=== PATIENT | male | born 1955 | race Caucasian/White ===

== ENCOUNTER 2021-09-26 00:31 | Day surgery (SDC) | payer MEDICARE, OTHER, SELFPAY ==
[2021-09-09 14:35] VITALS: BMI 28.3
[2021-09-26 06:40] VITALS: BP 164/92; PULSE 97; RESP 16; TEMP 36.4; O2SAT 99; BMI 29.0
--- NOTE | 2021-09-26 06:49 | PM.HPGS ---
History of Present Illness History of Present Illness Consent: Risks, benefits, and alternatives have been discussed and questions answered. Patient agrees to proceed with procedure. Chief complaint: neoplasm screening Narrative: Saul Humphries III is a 65 year old male Referred for colon cancer screening. His last colonoscopy was 10 years ago. Review of Systems Review of Systems: All systems reviewed & are unremarkable except as noted in HPI and below PMFSH Past Medical History Medical History Dyslipidemia GERD without esophagitis Low back pain at multiple sites Perianal fistula Unspecified osteoarthritis, unspecified site Vitamin D deficiency Surgical History Surgical History History of tonsillectomy 1958 Hx of cataract removal with insertion of prosthetic lens b/l 2015 Family History Family History Mother Family history of cardiovascular disease Family history of malignant neoplasm of breast in first degree relative Sibling Family history of malignant neoplasm Other Diabetes mellitus Hypertension Social History Social History Smoking status: Former smoker Tobacco type: cigarettes Second hand tobacco smoke exposure: No Smoking end date: 04/27/10 Alcohol intake: current Drinks per week: 1 Substance use: current Substance use type: marijuana Other substance usage details: MJ daily Living arrangements: with family Additional living arrangements comments: Gender identity (if verbalized by the patient): Male Sexual Orientation (if Verbalized by the Patient): Lesbian, Freitas, or Homosexual Spiritual care concerns: No Meds Home Medications and Allergies Home Medications Medication Instructions Recorded Confirmed Type pantoprazole 20 mg tablet,delayed 20 mg PO DAILY #90 tabs 08/07/21 09/09/21 Rx release simvastatin 40 mg tablet 40 mg PO QHS #90 tabs 09/02/21 09/09/21 Rx cholecalciferol (vitamin D3) 50 50 mcg PO DAILY #90 tabs 09/03/21 09/09/21 Rx mcg (2,000 unit) tablet mecobalamin (vitamin B12) 5,000 5,000 mcg PO DAILY 09/03/21 09/09/21 History mcg disintegrating tablet celecoxib 200 mg capsule 200 mg PO BID PRN pain #90 caps 09/11/21 Rx Allergies Allergy/AdvReac Type Severity Reaction Status Date / Time Cephalosporins Allergy Unknown Hives/Skin Verified 09/26/21 06:50 Rash Exam Resp: Auscultation: clear to auscultation bilaterally Cardio: Rate: regular rate Rhythm: regular rhythm GI: GI Palp: Yes Soft to palpation and No Tenderness to palpation present (GI) Assessment and Plan Assessment and plan (1) Colon cancer screening: Code(s): Z12.11 - Encounter for screening for malignant neoplasm of colon Status: Acute Assessment and Plan: Colonoscopy with possible biopsy or polypectomy or cautery or injection of substances.
[2021-09-26] MEDS: LACTATED RINGERS 1,000 ML 150 ML IV CONT (07:01)
--- NOTE | 2021-09-26 07:36 | WPDANESEPPF ---
Anes - Initial Pre Proc Eval Procedure: Operation Date: 09/26/21 08:00 Proposed Procedures p Screening Colonoscopy - Tim Soriano MD Date/Time: 09/26/21 07:36 Surgeon: Tim Soriano MD Pre Op Diagnosis: neoplasm screening Patient Data Age: 65 Gender: M Height: 1.91 m Weight: 105.3 kg Last Vital Signs Temp 97.6 F 09/26/21 06:40 Pulse 97 09/26/21 06:40 Resp 16 09/26/21 06:40 BP 164/92 H 09/26/21 06:40 Pulse Ox 99 09/26/21 06:40 O2 Del Method Room Air 09/26/21 06:40 Allergies Allergy/AdvReac Type Severity Reaction Status Date / Time Cephalosporins Allergy Unknown Hives/Skin Verified 09/26/21 06:50 Rash Home Medications Medication Instructions Recorded Confirmed Type pantoprazole 20 mg tablet,delayed 20 mg PO DAILY #90 tabs 08/07/21 09/26/21 Rx release simvastatin 40 mg tablet 40 mg PO QHS #90 tabs 09/02/21 09/26/21 Rx cholecalciferol (vitamin D3) 50 50 mcg PO DAILY #90 tabs 09/03/21 09/26/21 Rx mcg (2,000 unit) tablet mecobalamin (vitamin B12) 5,000 5,000 mcg PO DAILY 09/03/21 09/26/21 History mcg disintegrating tablet celecoxib 200 mg capsule 200 mg PO BID PRN pain #90 caps 09/11/21 09/26/21 Rx Patient hx anesthesia problems: none Family hx anesthesia problems: none Results Review: All pre-operative results and documents have been reviewed as part of the pre-operative evaluation. [facility] Past Medical History Medical History Dyslipidemia GERD without esophagitis Low back pain at multiple sites Perianal fistula Unspecified osteoarthritis, unspecified site Vitamin D deficiency Surgical History Surgical History History of tonsillectomy 1959 Hx of cataract removal with insertion of prosthetic lens b/l 2015 Family History Family History Mother Family history of cardiovascular disease Family history of malignant neoplasm of breast in first degree relative Sibling Family history of malignant neoplasm Other Diabetes mellitus Hypertension Social History Social History Smoking status: Former smoker Tobacco type: cigarettes Second hand tobacco smoke exposure: No Smoking end date: 04/27/10 Alcohol intake: current Drinks per week: 1 Substance use: current Substance use type: marijuana Other substance usage details: MJ daily Living arrangements: with family Additional living arrangements comments: Gender identity (if verbalized by the patient): Male Sexual Orientation (if Verbalized by the Patient): Lesbian, Freitas, or Homosexual Spiritual care concerns: No Anes - Eval Final PreProcedure Day of Procedure 09/26/21 07:36 Patient weight: obese Heart: regular rate and rhythm Lungs: clear to auscultation Airway: Mallampati scale class II Neurological: alert and oriented Last oral intake: >/= 8 hours ASA classification: III Emergent: no Anesthetic plan: proceed Anesthesia type and monitoring: general GIVS and standard monitoring Results Review: All pre-operative results and documents have been reviewed as part of the pre-operative evaluation. Informed Consent: The patient's anesthetic plan and its attendant risks and benefits were discussed with the patient/family/POA. Questions were solicited and answers provided to the satisfaction of the patient/family/POA.
--- NOTE | 2021-09-26 08:06 | SUR.OPER ---
pt coughing during procedure. oral suction used per anesthesia with minimal secretions. VS remained stable
[2021-09-26 08:11] VITALS: BP 97/57; PULSE 83; RESP 21; O2SAT 94
[2021-09-26 08:21] VITALS: BP 119/77; PULSE 80; RESP 22; O2SAT 96
[2021-09-26 08:31] VITALS: BP 136/69; PULSE 66; RESP 22; O2SAT 98
== END 2021-09-26 08:47 | disposition home or self-care (01) ==
PROVIDERS: PCP Family Medicine; Visit Provider Internal Medicine Gastroenterology
PROC: 0DJD8ZZ Inspection of Lower Intestinal Tract, Via Natural or Artificial Opening Endoscopic (ICD-10-PCS; CPT 45378; principal; 2021-09-26 08:00)
DX: Z12.11 Encounter for screening for malignant neoplasm of colon (principal); D12.8 Benign neoplasm of rectum; K62.1 Rectal polyp; K63.5 Polyp of colon; K64.8 Other hemorrhoids; K60.3 Anal fistula; K57.30 Diverticulosis of large intestine without perforation or abscess without bleeding; E78.5 Hyperlipidemia, unspecified; K21.9 Gastro-esophageal reflux disease without esophagitis; E55.9 Vitamin D deficiency, unspecified; M19.90 Unspecified osteoarthritis, unspecified site; Z87.891 Personal history of nicotine dependence; F12.90 Cannabis use, unspecified, uncomplicated; E66.9 Obesity, unspecified; Z68.29 Body mass index [BMI] 29.0-29.9, adult
CPT/HCPCS: 45385; 45380; 88305; J2704; J7120

== ENCOUNTER 2022-10-02 13:38 | Outpatient (CLI) | payer MEDICARE, OTHER, SELFPAY ==
[2022-10-02 18:43] LABS: Alanine Aminotransferase 40 U/L (6-50); Albumin Level 4.5 g/dL (3.5-5.1); Alkaline Phosphatase 69 U/L (38-126); Anion Gap 8 mmol/L (8-16); Aspartate Amino Transferase 40 U/L (17-59); Bilirubin,Total 0.6 mg/dL (0.2-1.3); Blood Urea Nitrogen 18 mg/dL (9-20); Calcium 9.3 mg/dL (8.4-10.2); Carbon Dioxide 27 mmol/L (22-30); Chloride 106 mmol/L (98-107); Estimated Glomerular Filt Rate > 60; Glucose 117 mg/dL (65-110); Potassium 4.3 mmol/L (3.4-5.0); Sodium 141 mmol/L (137-145)
[2022-10-02 19:10] LABS: Prostate Specific Antigen 6.2 ng/mL (< OR = 4.0)
[2022-10-02 19:21] LABS: Hemoglobin A1C 5.7 % (<5.7)
== END 2022-10-02 13:39 | disposition home or self-care (01) ==
LOC: ANHGOSHLAB 13:39
PROVIDERS: PCP Family Medicine; Visit Provider Family Medicine
DX: E78.5 Hyperlipidemia, unspecified (principal); R97.20 Elevated prostate specific antigen [PSA]; Z12.5 Encounter for screening for malignant neoplasm of prostate; R73.03 Prediabetes
CPT/HCPCS: 36415; 80053; 83036; 84153; G0103

== ENCOUNTER 2023-10-13 10:09 | Outpatient (CLI) | payer MEDICARE, OTHER, SELFPAY ==
[2023-10-13 12:53] LABS: Basophils Percent Auto 0.4 % (0.2-1.2); Eosinophils Absolute Auto 0.7 K/mm3 (0-0.3); Eosinophils Percent Auto 7.5 % (0-4.4); Hematocrit 49.3 % (42.0-52.0); Hemoglobin 16.2 g/dL (14.0-18.0); Immature Granulocyte Absolute 0.02 K/mm3 (0.00-0.031); Immature Granulocyte Percent A 0.2 % (0-0.5); Lymphocytes Absolute Auto 2.65 K/mm3 (0.9-3.2); Lymphocytes Percent Auto 29.8 % (18.3-44.2); Mean Corpuscular HGB Conc 32.9 g/dl (32-36); Mean Corpuscular Hemoglobin 31.1 pg (26-34); Mean Corpuscular Volume 94.6 fl (80-100); Mean Platelet Volume 10.3 fl (7.4-10.4); Monocytes Absolute Auto 0.6 K/mm3 (0.1-0.6); Neutrophils Absolute Auto 4.9 K/mm3 (1.3-6.7); Neutrophils Percent Auto 55.1 % (45.5-73.1); Platelet Count Result 298 k/mm3 (150-375); Red Blood Count 5.21 M/mm3 (4.6-6.20); Red Cell Distribution Width 12.8 % (11.5-14.5); White Blood Count 8.9 K/mm3 (4.5-10.0)
[2023-10-13 13:04] LABS: Alanine Aminotransferase 24 U/L (6-50); Albumin Level 4.4 g/dL (3.5-5.1); Alkaline Phosphatase 70 U/L (38-126); Anion Gap 11 mmol/L (4-12); Aspartate Amino Transferase 48 U/L (17-59); Bilirubin,Total 0.9 mg/dL (0.2-1.3); Blood Urea Nitrogen 19 mg/dL (9-20); Calcium 9.3 mg/dL (8.4-10.2); Carbon Dioxide 23 mmol/L (22-30); Chloride 109 mmol/L (98-107); Cholesterol 181 mg/dL (0-200); Estimated Glomerular Filt Rate > 60; Glucose 119 mg/dL (65-110); HDL Direct 39 mg/dL; Potassium 3.8 mmol/L (3.4-5.0); Sodium 143 mmol/L (137-145); Triglycerides 140 mg/dL (<150)
[2023-10-13 13:16] LABS: LDL Cholesterol Direct 115 mg/dL
[2023-10-13 14:25] LABS: Vitamin D 25 Hydroxy 46.2 ng/mL
[2023-10-13 16:25] LABS: Hemoglobin A1C 5.7 % (<5.7)
== END 2023-10-13 10:10 | disposition home or self-care (01) ==
LOC: ANHGOSHLAB 10:09
PROVIDERS: Nurse Practitioner Family; PCP Family Medicine; Visit Provider Family Medicine
DX: R73.03 Prediabetes (principal); Z00.00 Encounter for general adult medical examination without abnormal findings; I10 Essential (primary) hypertension; E53.8 Deficiency of other specified B group vitamins; E78.5 Hyperlipidemia, unspecified; Z79.899 Other long term (current) drug therapy; E55.9 Vitamin D deficiency, unspecified; R19.7 Diarrhea, unspecified
CPT/HCPCS: 36415; 80053; 80061; 82306; 82607; 83036; 84443; 85025; 87177; 87209

== ENCOUNTER 2024-10-18 09:10 | Outpatient (CLI) | payer MEDICARE, OTHER, SELFPAY ==
[2024-10-18 13:07] LABS: Basophils Percent Auto 0.5 % (0.2-1.2); Eosinophils Absolute Auto 0.4 K/mm3 (0-0.3); Eosinophils Percent Auto 4.9 % (0-4.4); Hematocrit 49.8 % (42.0-52.0); Immature Granulocyte Absolute 0.05 K/mm3 (0.00-0.031); Immature Granulocyte Percent A 0.6 % (0-0.5); Lymphocytes Absolute Auto 3.06 K/mm3 (0.9-3.2); Lymphocytes Percent Auto 36.7 % (18.3-44.2); Mean Corpuscular HGB Conc 32.1 g/dl (32-36); Mean Corpuscular Hemoglobin 31.1 pg (26-34); Mean Corpuscular Volume 96.7 fl (80-100); Mean Platelet Volume 10.1 fl (7.4-10.4); Monocytes Absolute Auto 0.7 K/mm3 (0.1-0.6); Monocytes Percent Auto 8.9 % (2.6-8.5); Neutrophils Percent Auto 48.4 % (45.5-73.1); Platelet Count Result 301 k/mm3 (150-375); Red Blood Count 5.15 M/mm3 (4.6-6.20); Red Cell Distribution Width 13.2 % (11.5-14.5); White Blood Count 8.3 K/mm3 (4.5-10.0)
[2024-10-18 13:20] LABS: Hemoglobin A1C 5.9 % (<5.7)
[2024-10-18 13:33] LABS: Alanine Aminotransferase 21 U/L (6-50); Alkaline Phosphatase 60 U/L (38-126); Anion Gap 9 mmol/L (4-12); Aspartate Amino Transferase 32 U/L (17-59); Bilirubin,Total 0.5 mg/dL (0.2-1.3); Blood Urea Nitrogen 16 mg/dL (9-20); Calcium 9.6 mg/dL (8.4-10.2); Carbon Dioxide 27 mmol/L (22-30); Chloride 106 mmol/L (98-107); Cholesterol 184 mg/dL (0-200); Estimated Glomerular Filt Rate > 60; Glucose 118 mg/dL (65-110); HDL Direct 40 mg/dL; Potassium 4.2 mmol/L (3.4-5.0); Sodium 142 mmol/L (137-145); Total Protein 7.1 g/dL (6.3-8.2); Triglycerides 131 mg/dL (<150)
[2024-10-18 13:44] LABS: LDL Cholesterol Direct 107 mg/dL
[2024-10-18 13:49] LABS: Vitamin D 25 Hydroxy 39.9 ng/mL
[2024-10-18 14:11] LABS: Prostate Specific Antigen 9.1 ng/mL (< OR = 4.0)
[2024-10-18 15:51] LABS: Total Triiodothyronine (T3) 1.36 NG/ML (0.82-1.58)
== END 2024-10-18 09:11 | disposition home or self-care (01) ==
PROVIDERS: PCP Family Medicine; Visit Provider Family Medicine
DX: R73.03 Prediabetes (principal); Z12.5 Encounter for screening for malignant neoplasm of prostate; R97.20 Elevated prostate specific antigen [PSA]; E55.9 Vitamin D deficiency, unspecified; E78.5 Hyperlipidemia, unspecified; E53.8 Deficiency of other specified B group vitamins; I10 Essential (primary) hypertension
CPT/HCPCS: 36415; 80053; 80061; 82306; 82607; 83036; 84153; 84439; 84443; 84480; 85025; G0103

== ENCOUNTER 2025-04-13 15:51 | Outpatient (CLI) | payer MEDICARE, OTHER, SELFPAY ==
[2025-04-13 18:54] LABS: Alanine Aminotransferase 22 U/L (6-50); Albumin Level 4.5 g/dL (3.5-5.1); Alkaline Phosphatase 70 U/L (38-126); Anion Gap 11 mmol/L (4-12); Aspartate Amino Transferase 29 U/L (17-59); Bilirubin,Total 0.7 mg/dL (0.2-1.3); Blood Urea Nitrogen 23 mg/dL (9-20); Calcium 9.5 mg/dL (8.4-10.2); Carbon Dioxide 23 mmol/L (22-30); Chloride 108 mmol/L (98-107); Estimated Glomerular Filt Rate > 60; Glucose 114 mg/dL (65-110); Potassium 3.9 mmol/L (3.4-5.0); Sodium 142 mmol/L (137-145); Total Protein 7.8 g/dL (6.3-8.2)
[2025-04-13 19:30] LABS: Hemoglobin A1C 5.9 % (<5.7)
[2025-04-13 19:31] LABS: Prostate Specific Antigen 9.2 ng/mL (< OR = 4.0)
== END 2025-04-13 15:52 | disposition home or self-care (01) ==
PROVIDERS: PCP Family Medicine; Visit Provider Family Medicine
DX: R73.03 Prediabetes (principal); R97.20 Elevated prostate specific antigen [PSA]; Z12.5 Encounter for screening for malignant neoplasm of prostate; E78.5 Hyperlipidemia, unspecified
CPT/HCPCS: 36415; 80053; 83036; 84153; G0103